=== PATIENT | male | born 1955 | race Caucasian/White ===

== ENCOUNTER 2024-03-28 11:55 | Observation (INO) ==
--- NOTE | 2024-01-03 12:02 | PAT Medication Instructions ---
Medication Instructions Date of Service January 03, 2024 Home Medications Lactobacillus rhamnosus GG 20 billion cell capsule (Probiotic Digestive Care) 1 cell PO HS aspirin 81 mg chewable tablet 81 mg PO HS lisinopril 20 mg tablet 20 mg PO HS meloxicam 15 mg tablet 15 mg PO HS multivitamin 1 tab PO HS 0 pantoprazole 20 mg tablet,delayed release (Protonix) 20 mg PO Q2D glucosamine sulf dipot chlr,msm,chond 550 mg-C 30 mg-juan diego 1 mg capsule (Glucosamine Chondroitin) 2 cap PO HS Continue as directed pantoprazole 20 mg tablet,delayed release (Protonix) 20 mg PO Q2D ASK your surgeon for instructions meloxicam 15 mg tablet 15 mg PO HS STOP taking 2 weeks before surgery glucosamine sulf dipot chlr,msm,chond 550 mg-C 30 mg-juan diego 1 mg capsule (Glucosamine Chondroitin) 2 cap PO HS Take evening before surgery Lactobacillus rhamnosus GG 20 billion cell capsule (Probiotic Digestive Care) 1 cell PO HS aspirin 81 mg chewable tablet 81 mg PO HS (unless surgeon directed otherwise) lisinopril 20 mg tablet 20 mg PO HS multivitamin 1 tab PO HS OTHERWISE NOTHING TO EAT OR DRINK AFTER MIDNIGHT Other Notes If you have any questions please call us at [phone] or [phone] or [phone] or [phone]
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
--- NOTE | 2024-03-25 15:23 | Myocardial Perfusion Study ---
Date of Service March 25, [address] [facility] Myocardial Perfusion Study Report ONE DAY NUCLEAR MEDICINE LEXISCAN TECHNETIUM 99M MYOCARDIAL PERFUSION SCAN Indication: Preop evaluation, aortic aneurysm, abnormal ECG. Baseline ECG: Normal sinus rhythm Stress ECG: No Lexiscan induced ST changes. Hemodynamics: HR slick from 72 bpm to 85 bpm representing 69% MPHR. BP 138/97 mmHg to 178/88 mmHg Technique: For the stress portion of the study 32.2 mCi of Technetium 99m Cardiolite IV was injected at 0858 on 03/25/2024. 30 minutes following the injection, imaging of the heart was performed in multiple projections. For the rest portion of the study, 10.1 mCi of Technetium 99m Cardiolite was injected IV at 0720. One hour following the injection, imaging of the hear was performed in the same projections. Raw images: Rotating raw images were reviewed in detail. Potential sources of attenuation include mild lateral chest wall shadowing impacting the lateral imaging borders of the heart. No significant extracardiac pathologic uptake. Perfusion images: Short axis, vertical long axis and horizontal long axis images were reviewed in detail. No visual transient ischemic dilation. No fixed or reversible perfusion defects to suggest infarct or ischemia were identified. Gated images: LV is non-dilated. Normal wall motion. EDV 94 ml.ESV 34 ml. Calculated EF 58%. . SUMMARY: 1. Lexiscan myocardial perfusion study negative for infarct or ischemia. 2. Normal left ventricular size and systolic function. Calculated ejection fraction 58%. No wall motion abnormalities. 3. No Lexiscan induced ECG changes. 4. No anginal symptoms. [facility] Myocardial perfusion code Indication for Procedure (1) Preop cardiovascular exam: (2) Abnormal EKG: (3) Aortic aneurysm: Procedure Code Procedure 1: Myocardial Perfusion Codes: 62426 Cardiovascular Stress Test, multiple Procedure 2: Myocardial Perfusion Codes: 24162 Cardiovascular Stress Test, supervision only Procedure 3: Myocardial Perfusion Codes: 90220 Cardiovascular Stress Test, interpretation and report
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
[~2024-03-28 11:55] MED LIST: BUPIVACAINE 0.5 % 5 MG/1 ML PF 10ML VIAL ONE; ROPIVACAINE 0.5% 5 MG/ML 30 ML VIAL ONE
--- NOTE | 2024-03-28 12:05 | History & Physical Bridge Note ---
Date of Service March 28, 2024 History & Physical Bridge Note I have examined the patient, reviewed the History & Physical and in the interval since the performance of the History & Physical I have noted the following changes of clinical significance: no changes noted
[2024-03-28] MEDS ORDERED: MIDAZOLAM HCL 1 MG/ML 2ML VIAL ONE (12:06)
[2024-03-28] MEDS ORDERED: fentaNYL citrate PF 100 MCG/2 ML VIAL ONE (12:07)
[2024-03-28 12:26] LABS: Basophils # (auto) 0.08 K/uL (0.00-0.20); Eosinophils # (auto) 0.13 K/uL (0.00-0.50); Eosinophils % (auto) 1.7 %; Hemoglobin 17.4 g/dl (14.0-18.0); Immature Granulocytes # (auto) 0.02 K/uL (0.01-0.20); Immature Granulocytes % (auto) 0.3 %; Lymphocytes # (auto) 1.96 K/uL (1.20-3.40); Lymphocytes % (auto) 25.6 %; Mean Corpuscular Hemoglobin 33.1 pg (25.0-34.0); Mean Corpuscular Hgb Conc 34.8 g/dL (32.0-36.0); Mean Corpuscular Volume 95.1 fL (80.0-100.0); Mean Platelet Volume 10.8 fL (9.4-12.4); Monocytes # (auto) 0.86 K/uL (0.11-0.59); Monocytes % (auto) 11.2 %; Neutrophils # (auto) 4.61 K/uL (1.40-6.50); Neutrophils % (auto) 60.2 %; Platelet Count 224 K/uL (130-400); RDW Coefficient of Variation 11.9 % (11.5-14.5); RDW Standard Deviation 41.6 fL (36.4-46.3); Red Blood Count 5.26 M/uL (4.70-6.10); White Blood Count 7.66 K/ul (4.8-10.8)
[2024-03-28] MEDS: ACETAMINOPHEN 500 MG TAB PO SCH ×2 (12:28→20:24)
[2024-03-28] MEDS: LR 60ML/HR IV SCH (12:28)
[2024-03-28] MEDS: dexAMETHasone**PF** 10 MG/ML VIAL IV SCH (12:29)
[2024-03-28] MEDS: FAMOTIDINE 20 MG TAB PO SCH (12:29)
[2024-03-28] MEDS: GABAPENTIN 300 MG CAP PO SCH (12:29)
[2024-03-28 12:42] LABS: BUN Creatinine Ratio 13.2 (10-20); Creatinine Clr Calc Pharmacy 80.4 ml/min; Est GFR (African American) 83.8 ml/min; Est GFR (Non-African American) 72.3 ml/min; Potassium 4.4 mmol/L (3.5-5.1)
[2024-03-28] MEDS ORDERED: PROPOFOL IV EMULSION 10 MG/ML 20 ML VIAL IV ONE ×4 (12:42→16:02)
[2024-03-28] MEDS ORDERED: fentaNYL citrate PF 100 MCG/2 ML VIAL IV PRN (12:51)
[2024-03-28] MEDS ORDERED: ONDANSETRON INJ 2 MG/ML 2 ML VIAL IV PRN ×2 (12:51→18:35)
[2024-03-28] MEDS ORDERED: ePHEDrine sulfate 50 MG/ML AMP IV PRN (12:51)
[2024-03-28] MEDS ORDERED: ATROPINE SULFATE 0.1 MG/ML 10ML SYR IV PRN (12:51)
[2024-03-28 12:55] LABS: Partial Thromboplastin Ratio 0.9; Partial Thromboplastin Time 25 Seconds (21-31); Prothrombin Time 11.2 Seconds (9.0-12.0)
[2024-03-28] MEDS: TRANEXAMIC ACID 1,000 MG **IV Pre-op IV SCH (13:36)
[2024-03-28] MEDS: ceFAZolin 2000MG 2,000 MG/15 ML SYR IV SCH ×2 (13:52→21:02)
[2024-03-28] MEDS ORDERED: LIDOCAINE 2% 2 ML VIAL/AMP(20MG/ML) INFIL ONE (14:29)
[2024-03-28] MEDS: ORTHO JOINT ANESTHETIC ONE (14:54)
[2024-03-28] MEDS: ROPIV 0.5% 246mg, Ketorolac 30mg, EPINEPHrine 0.5mg in NSS INFIL SCH (14:54)
[2024-03-28] MEDS: TRANEXAMIC ACID 1,000 MG **IV Intra-op IV SCH (15:59)
--- NOTE | 2024-03-28 16:04 | Operative Report ---
PG Post Operative Report Pre & Post Diagnosis Operation Date: 03/28/24 13:25 Pre-Op Diagnosis: Degenerative Joint Disease Bilateral Knees Post-Op Diagnosis: Degenerative Joint Disease Bilateral Knees I identified the patient and participated in the time-out.: Yes Procedure Operation Date: 03/28/24 13:25 Actual Procedures p Bilateral Total Knee Arthroplasty(Bilateral) - Mauricio Reynoso DO Surgeon Mauricio Reynoso DO [employer]ist Mauricio Villegas PA-C Estimated Blood Loss 60 Findings Consistent with Post-Op Diagnosis Specimens Bilateral femoral and tibial bone Description of Procedure Wayne arrived [facility] [address] for the above procedure. He was seen in the preoperative holding area and both knees were identified and signed. He was given a preoperative antibiotic, TXA, a spinal anesthetic and adductor nerve blocks. He was taken back to the operating room and laid on the table in supine position. He was given basic sedation. Both knees were then prepped and draped in sterile fashion. A timeout was done, and the patient and the operative extremities were properly identified. Right knee implants used: I used a Espinoza Persona total knee arthroplasty system with a size 8 standard PS femur, E tibia, 31 oval patella, and a size 14 CPS polyethylene bearing. All components were cemented in place with Palacos G cement. A midline incision was made directly over the patella. Dissection was taken down to the extensor mechanism. A medial parapatellar arthrotomy was used. The medial retinaculum was released and the fat pad was mostly excised. The knee was flexed and the ACL, PCL, and meniscus were removed. A drill was sent down the center of the femoral canal followed by an in tramedullary fausto. Off that fausto a distal femoral cutting block was placed. 9 mm was resected off the distal femur at 5 of valgus. A posterior referencing AP sizing guide was then placed on the distal femur. The femur measured to be a size 8. 2 drill holes were placed in 3 of external rotation. A 4-in-1 cutting block was then impacted into place. Anterior, posterior, and chamfer cuts were then made. The proximal tibia was then exposed. An external tibial alignment guide was placed. A tibial cut guide was then anchored in place and the proximal tibia was then resected. The posterior aspect of the knee was then opened up and any additional meniscus fragments and osteophytes were removed. The tibia measured to be a size E. The tibial plate was then placed in the appropriate rotation and the tibia was drilled and punched. Trial components were then placed. I used a size 14 CPS polyethylene insert. The knee was brought through a full range of motion and felt to be stable. The peg holes for the femur were then drilled. The patella was then everted and 9 mm was resected off the posterior aspect of the patella. The patella measured to be a size 31 oval. 3 peg holes were then drilled. A trial patella was placed. The knee was once again brought through a full range of motion and felt to be stable. Trial components were then removed. The surrounding soft tissues were injected with 50 cc of an orthopedic pain control cocktail. All components were then cemented into place with Palacos G cement. The final polyethylene insert was then snapped into place. Once cement was dry the tourniquet was deflated. Hemostasis was obtained. A dilute betadyne lavage was then done for 3 minutes. The joint was then irrigated with normal saline solution. The medial parap atellar arthrotomy was then closed with #1 Vicryl suture. The skin was closed with 2-0 Vicryl, 3-0V lock suture, and simona. A Silverlon and a soft compressive dressing were placed. Left knee implants used: I used a Espinoza Persona total knee arthroplasty system with a size 8 standard PS femur, E tibia, 31 oval patella, and a size 12 CPS polyethylene bearing. All components were cemented in place with Palacos G cement. A midline incision was made directly over the patella. Dissection was taken down to the extensor mechanism. A medial parapatellar arthrotomy was used. The medial retinaculum was released and the fat pad was mostly excised. The knee was flexed and the ACL, PCL, and meniscus were removed. A drill was sent down the center of the femoral canal followed by an intramedullary fausto. Off that fausto a distal femoral cutting block was placed. 9 mm was resected off the distal femur at 5 of valgus. A posterior referencing AP sizing guide was then placed on the distal femur. The femur measured to be a size 8. 2 drill holes were placed in 3 of external rotation. A 4-in-1 cutting block was then impacted into place. Anterior, posterior, and chamfer cuts were then made. The proximal tibia was then exposed. An external tibial alignment guide was placed. A tibial cut guide was then anchored in place and the proximal tibia was then resected. The posterior aspect of the knee was then opened up and any additional meniscus fragments and osteophytes were removed. The tibia measured to be a size E. The tibial plate was then placed in the appropriate rotation and the tibia was drilled and punched. Trial components were then placed. I used a size 12 CPS polyethylene insert. The knee was brought through a full range of motion and felt to be stable. The peg holes for the femur were then drilled. The patella was then everted and 9 mm was resected off the posterior aspect of the patella. The patella measured to be a size 31 oval. 3 peg holes were then drilled. A trial patella was placed. The knee was once again brought through a full range of motion and felt to be stable. Trial components were then removed. The surrounding soft tissues were injected with 50 cc of an orthopedic pain control cocktail. All components were then cemented into place with Palacos G cement. The final polyethylene insert was then snapped into place. Once cement was dry the tourniquet was deflated. Hemostasis was obtained. A dilute betadyne lavage was then done for 3 minutes. The joint was then irrigated with normal saline solution. The medial parapatellar arthrotomy was then closed with #1 Vicryl suture. The skin was closed with 2-0 Vicryl, 3-0V lock suture, and simona. A Silverlon and a soft compressive dressing were placed. He was then transferred to a hospital bed and taken to the postanesthesia care unit in stable condition. He tolerated the procedure well. Mauricio Villegas PA-C, was present for the entire procedure. He was critical for patient positioning, prepping, draping, retraction exposure, wound closure and application of sterile dressing. I attest to the content of the Intraoperative Record and any orders documented therein. Any exceptions are noted below.
--- NOTE | 2024-03-28 16:44 | XRay Report ---
XR knee RT 1 or 2V routine CLINICAL HISTORY: Surgical Post Op TECHNIQUE: 2 views of the right knee were obtained. Comparison: Comparison is made to knee radiograph 01/09/2024 FINDINGS: Patient is status post total knee arthroplasty with expected postsurgical changes including soft tiss ue swelling and subcutaneous emphysema. No periarticular lucency or hardware fracture is seen. IMPRESSION: Expected postoperative appearance status post placement of total knee arthroplasty. ACT 112: Negative or not required by law. Electronically signed by: Andrzej Hopson M.D. 03/28/2024 4:43 PM
--- NOTE | 2024-03-28 16:44 | XRay Report ---
XR knee LT 1 or 2V routine CLINICAL HISTORY: Surgical Post Op TECHNIQUE: 2 views of the left knee were obtained. Comparison: Comparison is made to knee radiographs 01/09/2024 FINDINGS: Patient is status post total knee arthroplasty with expected postsurgical changes including soft tiss ue swelling and subcutaneous emphysema. No periarticular lucency or hardware fracture is seen. IMPRESSION: Expected postoperative appearance status post placement of total knee arthroplasty. ACT 112: Negative or not required by law. Electronically signed by: Andrzej Hopson M.D. 03/28/2024 4:42 PM
--- NOTE | 2024-03-28 18:15 | Anesthesiology Progress Note ---
Date of Service March 28, 2024 Anesthesia Post Procedure Vital Signs Vital Signs: Temp Pulse Pulse Resp BP Pulse Ox O2 Del Method 03/28/24 18:00 36.5 C 64 18 117/78 93 Room Air 03/28/24 17:30 66 22 134/96 92 Room Air 03/28/24 17:05 36.6 C 66 23 123/94 93 Room Air 03/28/24 16:55 36.6 C 71 21 124/94 94 Room Air 03/28/24 16:45 68 20 116/93 96 Oxymask 03/28/24 16:35 67 18 124/91 94 Oxymask 03/28/24 16:28 36.8 C 70 16 120/90 94 Oxymask 03/28/24 12:56 36.7 C 94 H 20 171/123 H 96 Room Air O2 Flow Rate 03/28/24 18:00 03/28/24 17:30 03/28/24 17:05 03/28/24 16:55 03/28/24 16:45 5 03/28/24 16:35 7 03/28/24 16:28 7 03/28/24 12:56 Transfer of Care Handoff Completed per policy Notes Mental Status: alert / awake / arousable and participated in evaluation Patient Amnestic to Procedure: Yes Nausea / Vomiting: adequately controlled Pain: adequately controlled Airway Patency, RR, SpO2: stable & adequate BP & HR: stable & adequate Hydration State: stable & adequate Neuraxial Anesthesia: was administered and sensory block is resolving Anesthetic Complications: no major complications apparent and Pt Satisfied with anesthetic care
[2024-03-28] MEDS ORDERED: HYDROmorphone INJ 0.5 MG/0.5 ML SYR IV PRN (18:35)
[2024-03-28] MEDS ORDERED: bisacodyL 10 MG SUPP PR PRN (18:35)
[2024-03-28] MEDS ORDERED: METOCLOPRAMIDE HCL INJ 5 MG/ML 2 ML VIAL IV PRN (18:35)
[2024-03-28] MEDS ORDERED: MAGNESIUM HYDROXIDE SUSP 30 ML UDC PO PRN (18:35)
[2024-03-28] MEDS ORDERED: NALOXONE HCL 0.4 MG/1 ML VIAL/CARP IV PRN (18:35)
[2024-03-28] MEDS: SODIUM CHLORIDE 0.9% 1,000 ML IV SCH (19:16)
[2024-03-28] MEDS: KETOROLAC TROMETHAMINE 15 MG/ML VIAL IV SCH (19:16)
[2024-03-28] MEDS: SENNA 8.6 MG TAB PO SCH (20:24)
[2024-03-28] MEDS: ASPIRIN 81 MG ECTAB PO SCH (20:24)
[2024-03-28] MEDS: lisinopril 20 MG TAB PO SCH (20:24)
[2024-03-28] MEDS: DOCUSATE SODIUM 100 MG CAP PO SCH (20:25)
[2024-03-29] MEDS: oxyCODONE HCL IR 5 MG TAB (IMMEDIATE RELEASE) PO PRN (05:54)
[2024-03-29] MEDS: dexAMETHasone 4 MG TAB PO SCH (08:11)
[2024-03-29] MEDS: MULTIVITAMIN TAB PO SCH (08:11)
--- NOTE | 2024-03-29 10:25 | Orthopedic Progress Note ---
Date of Service March 29, 2024 Assessment & Plan (1) Status post bilateral knee replacements: Overall he is doing fairly well. He is not having much pain in his knees. He will be seen by physical therapy today for ambulation and range of motion exercises. The nursing staff can change his dressings after physical therapy. He can be discharged home later today. He will follow-up with orthopedics in 2 weeks. Anita Black was seen and examined at bedside this morning. Overall he is doing very well. He is not having much pain in his knees. He has been up and ambulating with the therapist. He has no complaints.. Review of Systems All systems reviewed & are unremarkable except as noted in HPI & below. Physical Exam On physical examination of both knees, the dressings are clean and dry. He stated in a chair at bedside with his knees flexed to about 90 degrees.. Results & Data Results & Data Laboratory Results . Diagnostic Findings Postoperative x-rays of both knees show the prosthesis to be in anatomic alignment without any evidence of fracture, his cage, or loosening.. PG Care Time/CCT Total # of Minutes Spent Total Time Spent with Patient: Total time spent is greater than 50% in coordination of care (as documented) at patient's floor/unit and/or counseling patient: Coding Level of Care Code 59772 Post Operative Follow-Up Diagnoses Status post bilateral knee replacements Z96.653
--- NOTE | 2024-03-29 10:26 | Discharge Summary ---
Date of Service March 29, 2024 Admission HPI (Per Admitting) Wayne is a pleasant 68-year-old male who has been dealing with chronic increasing bilateral knee pain. He will be retiring in about a week. He has known osteoarthritis of both knees. He does have a history of a knee arthroscopy in the past. He has failed years of conservative treatment including multiple injections. After failing conservative treatment, he has elected proceed with bilateral total knee arthroplasties.. Admission Exam (Per Admitting) On physical examination of both knees, he has a slight varus deformity. He has tenderness palpation of the distal medial femoral condyles and over the medial joint line.. Principal Diagnosis Same as "Discharge Diagnosis" noted below under Discharge Instructions. Discharge Exam On physical examination of both knees, the dressings are clean and dry. He stated in a chair at bedside with his knees flexed to about 90 degrees.. Discharge Data Procedures Performed Operation Date: 03/28/24 13:25 Actual Procedures p Bilateral Total Knee Arthroplasty(Bilateral) - Mauricio Reynoso DO Ordered Studies 03/28/24 05:00 US - OR guided needle placemen Routine Hospital Course (1) Status post bilateral knee replacements: On March 28, 2024 Wayne arrived at [facility] and underwent bilate ral knee replacements without complication. He had a spinal anesthetic. Postoperatively he was started on aspirin for DVT prophylaxis and transferred to the general orthopedic floors. His hospital course was uneventful. On postop day #1, his vital signs were stable and his pain was well-controlled. He was able to participate well with physical therapy doing ambulation and range of motion exercises. He was then discharged to home. He will follow-up with orthopedics in 2 weeks. PG Care Time/CCT Total # of Minutes Spent Total Time Spent with Patient: Total time spent is greater than 50% in coordination of care (as documented) at patient's floor/unit and/or counseling patient: Discharge Plan Discharge Items Patient Disposition: Home - Self-Care Reason For Visit: Degenerative Joint Disease Bilateral Knees Discharge Diagnosis: Bilateral knee replacements Activity: As commented below Non-emergency contact: Surgeon Call non-emergency contact if: your wound has increased redness and your wound has increased drainage Follow-up/Referrals: PCP,NO [Primary Care Provider] - Diet: Regular Addtl Attending Provider Instructions: Activity and Therapy Recommendations: * If you are using [facility] then therapy will be provided at your home until they feel you have accomplished all of your goals. * If you are using [facility] then Physical Therapy will be provided until they feel you are ready to start Outpatient Physical Therapy. * If you are not using home therapy then Outpatient Physical Therapy should start about 3-5 days from your day of surgery. Therapy will last about 6-10 weeks * It is important not to put a pillow under your knee when you are relaxing or sleeping. It is just as important to make sure you are getting your knee perfectly straight as it is to regain your knee bend. * You were shown a series of exercises in the hospital. Do these exercises three times each day including the exercises you were shown in physical therapy. * Get up and walk several times each day. For the first four weeks, try not to stand or walk for more than one hour at a time. If you do stand or walk for more than one hour, you will not hurt anything, but your leg will likely swell. * As you feel comfortable, you may change from the walker or crutches to a cane and then to independent walking. Medications: * Narcotic You will likely be sent home from the hospital with a prescription for the narcotic pain medication that worked best throughout your stay. * Cefadroxil -take the antibiotic twice a day for 10 days to help prevent infection. * Aspirin Most patients will be required to take Aspirin 81mg twice a day for 6 weeks after surgery. This is obtained [id number] and a prescription is not necessary. * Other medications may be prescribed for specific circumstances. If you have any questions, please call the office at . * Resume previous home medications unless otherwise instructed TEDs/Elastic Stockings: The white elastic stockings help limit swelling and prevent blood clots from forming in your legs.~ The more you wear them, the more they work. Wear them for six weeks. Dressing Care: The dressing can be changed after physical therapy on postop day #1. Daily dry dressing changes for a few days, especially if the incision is still draining some. If the incision is not draining then you may leave the simona open to air. If there is a little bit of drainage or if the simona are getting stuck on your clothing then cover the incision with a dry dressing. The simona will be removed at your 2 week follow-up appointment. Showering: You may shower 5 days from the day of surgery as long as the incision is no longer draining. You may shower with the simona exposed. Let soapy water run over the simona and pat them dry. Do not scrub or soak the incision. Things To Watch For: * Drainage from the incision site that occurs more than one week after your surgery. * Increased redness at the incision site. * Fever above 102 degrees Fahrenheit. * Unusual chest pain or shortness of breath. * Call [facility] at with any of the above problems Follow-Up Visit: Follow-up with Dr. Reynoso's PA (Mauricio Villegas) 2-3 weeks after your day of surgery. He will remove your simona and answer any questions. If you have any additional questions or concerns, Dr Reynoso is usually in the office at the same time and will be available An appointment was probably scheduled when you signed-up for surgery in the office. If you have any questions call Office Instructions: More detailed instructions as well as Frequently Asked Questions were provided in a folder by our office when you signed-up for surgery. Please review these instructions when you get home. If you have any further questions or concerns, please feel free to call the office at [phone] Pending Studies at Discharge: No Stand-Alone Forms: [facility] Medications and DC Order Prescriptions: New oxycodone 5 mg Tablet 5 mg PO Q4H PRN (Reason: pain) Qty: 30 0RF cefadroxil 500 mg capsule 500 mg PO BID 10 Days Qty: 20 0RF Continued pantoprazole [Protonix] 20 mg tablet,delayed release (DR/EC) 20 mg PO Q2D lisinopril 20 mg tablet 20 mg PO HS meloxicam 15 mg tablet 15 mg PO HS PRN (Reason: Pain) multivitamin Tablet 1 tab PO HS Probiotic Digestive Care 20 billion cell capsule 1 cell PO HS Glucosamine Chondroitin 550-30-1 mg Capsule 2 cap PO HS Changed aspirin 81 mg tablet,chewable 81 mg PO BID 42 Days Qty: 0 0RF Discharge Orders: Discharge Order (Routine); Ordered 03/29/24 Ordered By: Mauricio Reynoso Admission Data Admit Date/Time: 03/28/24 16:27 Attending Provider: Mauricio Reynoso Admit Provider: Mauricio Reynoso Primary Care Provider: PCP,NO Other Interventions: Discharge Summary Assessment (RN) Last Done: 03/29/24 10:17
== END 2024-03-29 12:05 | disposition home or self-care (01) ==
LOC: ASU 11:55 → 3E 11:55